=== PATIENT | female | born 1975 | race Caucasian/White ===

== ENCOUNTER 2018-01-21 08:10 | Day surgery (SDC) | payer OTHER ==
[~2018-01-21] VITALS: Ht 152.4 cm; Wt 78.5 kg
[2018-01-21] MEDS ORDERED: fentaNYL 0.05 MG/ML VIAL ONE (09:42)
[2018-01-21] MEDS ORDERED: MIDAZOLAM 2 MG/2 ML VIAL ONE ×2 (09:42→09:43)
== END 2018-01-21 11:00 | disposition home or self-care (01) ==
LOC: MDS 08:10 → MMU 08:11 → MDS 11:00
PROVIDERS: ATTEND Internal Medicine Gastroenterology
DX: K22.2 Esophageal obstruction (principal); J45.909 Unspecified asthma, uncomplicated; E66.9 Obesity, unspecified; Z68.33 Body mass index [BMI] 33.0-33.9, adult; Z88.8 Allergy status to other drugs, medicaments and biological substances; Z98.890 Other specified postprocedural states; Z90.49 Acquired absence of other specified parts of digestive tract; Z90.710 Acquired absence of both cervix and uterus
CPT/HCPCS: 43235; J2250; J7030; J3010